=== PATIENT | female | born 1965 | race Caucasian/White ===

== ENCOUNTER → 2016-12-26 | Outpatient (CLI) | payer BC ==
--- NOTE | 2016-12-26 10:28 | US ---
EXAMINATION TYPE: US kidneys/renal and bladder DATE OF EXAM: 12/26/2016 COMPARISON: NONE CLINICAL HISTORY: N23 RENAL COLIC. EXAM MEASUREMENTS: Right Kidney: 10.4 x 4.2 x 5.0 cm Left Kidney: 10.7 x 5.4 x 4.4 cm Right Kidney: there appears to be a small amount of hydro and kidney stones Left Kidney: hyperechoic ovoid structure measuring 0.6 x 0.4 x 0.6cm Bladder: possible septation Bilateral Jets seen: yes There is a mild right-sided hydronephrosis. No evidence for left-sided hydronephrosis. Small hyperech oic foci right kidney with posterior acoustic shadowing felt to reflect small nephrolithiasis. 6 x 4 x 6 mm calculus mid pole left kidney. No solid or cystic mass is identified with certainty. The urina ry bladder is anechoic. Bladder septation is suspected. Bilateral ureteral jets are seen. IMPRESSION: 1. Mild right-sided hydronephrosis with nephrolithiasis identified. 2. Nonobstructing left-sided nephrolithiasis. 3. Urinary bladder septation.
== END | disposition home or self-care (01) ==
LOC: RADUSWWP 09:00
PROVIDERS: ATTEND Family Medicine
DX: N13.2 Hydronephrosis with renal and ureteral calculous obstruction (principal); N32.89 Other specified disorders of bladder
CPT/HCPCS: 76770

== ENCOUNTER → 2017-01-10 | Outpatient (CLI) | payer BC ==
--- NOTE | 2017-01-10 14:01 | US ---
EXAMINATION TYPE: US kidneys/renal and bladder DATE OF EXAM: 01/10/2017 COMPARISON: US CLINICAL HISTORY: N13.30 Hydronephrosis. Kidney stones, hydronephrosis EXAM MEASUREMENTS: Right Kidney: 11.4 x 5.1 x 5.0 cm Left Kidney: 11.0 x 5.3 x 4.3 cm Right Kidney: appears to be small amount of hydro with 0.4cm hyperechoic focus mid pole Left Kidney: appears to be small amount of hydro with 0.6cm hyperechoic structure mid pole Bladder: wnl Bilateral Jets seen: yes Echogenic foci within the kidneys could be none shadowing nonobstructing renal stones. IMPRESSION: Suspected bilateral renal stones without evidence of obstruction
== END | disposition home or self-care (01) ==
LOC: RADUSWWP 13:06
PROVIDERS: ATTEND Family Medicine
DX: N13.30 Unspecified hydronephrosis (principal)
CPT/HCPCS: 76770

== ENCOUNTER 2018-07-17 09:35 | Day surgery (SDC) | payer BC ==
[2018-07-11 14:58] VITALS: BMI 25.0
[~2018-07-17 09:35] MED LIST: HYDROmorphone 0.5 MG/0.5 ML SYRINGE IVP PRN; LACTATED RINGERS 1,000 ML IV SCH; MIDAZOLAM (PF) 2 MG/2 ML VIAL IV PRN; MOXIFLOXACIN HCL 0.5% DROPS 3 ML BTL OP ONE; TETRACAINE 0.5% OPHTH (PF) DROPS 4 ML BTL OP ONE; TIMOLOL 0.5% OPHTH DROPS 5 ML BTL OP ONE
[2018-07-17] MEDS: CYCLOPENTOLATE 1% OPHTH SOLN 2 ML BTL OP ONE ×3 (10:49→11:06)
[2018-07-17 10:51] VITALS: TEMP 99
[2018-07-17] MEDS: PHENYLEPHRINE 2.5% OPHTH DRP 2ML OP NR ×3 (10:53→11:09)
[2018-07-17] MEDS ORDERED: MIDAZOLAM 2 MG/2 ML VIAL ONE (11:44)
[2018-07-17] MEDS ORDERED: fentaNYL (PF) 50 MCG/ML 2 ML AMP ONE (11:44)
[2018-07-17] MEDS ORDERED: BALANCED SALT IRRIG SOLN COMB2 15 ML IRRIG.SOLN INTRAOCULA ONE (11:48)
[2018-07-17] MEDS ORDERED: LIDOCAINE 1% (PF) 10MG/ML VIAL MISCELLANE ONE (11:48)
[2018-07-17] MEDS ORDERED: HYALURONATE SODIUM INTRAOCULAR 1 EACH SYRINGE (12MG/ML) INTRAOCULA ONE (11:48)
--- NOTE | 2018-07-17 12:25 | P.OP ---
Date of Procedure: 07/17/18 Preoperative Diagnosis: NS & CS Postoperative Diagnosis: same Procedure(s) Performed: PIOL OS Implants: PCB00 21.0 Anesthesia: MAC Surgeon: Silas Gordon Estimated Blood Loss (ml): 0 Pathology: none sent Condition: stable Disposition: same day Indications for Procedure: blurry vision Operative Findings: No complications
[2018-07-17 12:47] VITALS: BP 138/68; PULSE 94; RESP 16
--- NOTE | 2018-07-17 20:56 | OP ---
OPERATIVE REPORT DATE OF SURGERY: July 17, 2018. PROCEDURE PERFORMED: Phacoemulsification of cataract and intraocular lens implant of the left eye. 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 POSTOPERATIVE DIAGNOSIS: Nuclear sclerosis and cortical sclerosis. SURGEON: Dr. Silas Gordon. ANESTHESIA: Topical. ESTIMATED BLOOD LOSS: None. SPECIMEN: None. NARRATIVE: After obtaining the appropriate consent, the patient was brought to the operating room there she was placed on cardiac monitoring prepped and draped in the usual sterile manner. She was approached from her left temporal side and at the 5 o'clock position a an MVR blade was used to create a paracentesis port. Through this opening, Amvisc was used to stabilize the anterior chamber. At the 3 o'clock position, a 2.5 mm keratome was used to create a self-sealing corneal flap incision in Langerman's fashion. A cystotome was introduced to begin a continuous tear capsulorrhexis which was then completed using the Utrata forceps. Hydrodissection and hydrodelineation of the lens was accomplished with balanced salt solution. Phacoemulsification lens utilizing phaco chop was accomplished in 33 100s of a second at 2% power. The remaining cortical material was then removed under irrigation and aspiration along with careful polishing of the posterior capsule in the capsule vacuum mode. Additional Amvisc was then used to stabilize the capsular bag and an BORIS PCP 0 0 21.0 diopter posterior chamber intraocular lens was introduced into the capsular bag without difficulty. The remaining viscoelastic was removed from in and around the intra-ocular lens as well as the anterior chamber. The eye was then brought to normal intraocular pressure through the paracentesis port and the incisions were confirmed watertight. She then received 2 drops of half percent timolol followed by 2 drops of moxifloxacin and was then lightly patched and shielded in the usual manner. There were no complications from the procedure. She tolerated the procedure well, was returned to outpatient recovery in good condition. MMODL / IJN: [id number] /
== END 2018-07-17 12:59 | disposition home or self-care (01) ==
LOC: OR 09:35
PROVIDERS: ATTEND Ophthalmology
DX: H25.013 Cortical age-related cataract, bilateral (principal); H25.12 Age-related nuclear cataract, left eye; J45.909 Unspecified asthma, uncomplicated; K21.9 Gastro-esophageal reflux disease without esophagitis; Z88.2 Allergy status to sulfonamides; Z88.0 Allergy status to penicillin; H49.12 Fourth [trochlear] nerve palsy, left eye; H52.4 Presbyopia; H52.13 Myopia, bilateral; Z88.8 Allergy status to other drugs, medicaments and biological substances; Z88.4 Allergy status to anesthetic agent
CPT/HCPCS: 66984; C1780; J2250; J3010; J2001

== ENCOUNTER 2024-07-30 06:38 | Day surgery (SDC) | payer BC ==
[2024-07-25 14:06] VITALS: BMI 25.0
[~2024-07-30 06:38] MED LIST changes: -HYDROmorphone 0.5 MG/0.5 ML SYRINGE IVP PRN; -LACTATED RINGERS 1,000 ML IV SCH; -MIDAZOLAM (PF) 2 MG/2 ML VIAL IV PRN; -MOXIFLOXACIN HCL 0.5% DROPS 3 ML BTL OP ONE; -TETRACAINE 0.5% OPHTH (PF) DROPS 4 ML BTL OP ONE; +TETRACAINE 0.5% OPHTH (PF) DROPS 4 ML BTL OP PRN; -TIMOLOL 0.5% OPHTH DROPS 5 ML BTL OP ONE
[2024-07-30] MEDS ORDERED: LACTATED RINGERS 1,000 ML IV SCH (07:06)
[2024-07-30] MEDS: IV FLUID CONTINUATION 1,000 ML IV ONE (07:12)
[2024-07-30] MEDS: CYCLOPENTOLATE 1% OPHTH SOLN 2 ML BTL OP PRN (07:19)
[2024-07-30] MEDS: PHENYLEPHRINE 2.5% OPHTH DRP 2ML OP PRN (07:22)
[2024-07-30 07:25] VITALS: TEMP 97.9
[2024-07-30] MEDS ORDERED: fentaNYL (PF) 50 MCG/ML 2 ML AMP ONE (08:13)
[2024-07-30] MEDS ORDERED: MIDAZOLAM 2 MG/2 ML VIAL ONE (08:13)
[2024-07-30] MEDS: EPINEPHrine (PF) 0.3 ML in BALANCED SALT IRRIG SOLN COMB2 500 ML IRRIGATION ONE (08:30)
[2024-07-30] MEDS: HYALURONATE SODIUM INTRAOCULAR 1 EACH SYRINGE (12MG/ML) INTRAOCULA ONE (08:41)
[2024-07-30] MEDS: LIDOCAINE 1% (PF) 10MG/ML VIAL SQ ONE (08:42)
[2024-07-30] MEDS: TIMOLOL 0.5% OPHTH DROPS 5 ML BTL OP PRN (08:42)
[2024-07-30] MEDS: BALANCED SALT IRRIG SOLN COMB2 15 ML IRRIG.SOLN INTRAOCULA ONE (08:42)
[2024-07-30] MEDS: MOXIFLOXACIN HCL 0.5% DROPS 3 ML BTL OP PRN (08:42)
--- NOTE | 2024-07-30 08:46 | P.OP ---
Date of Procedure: 07/30/24 Preoperative Diagnosis: NS & CS Postoperative Diagnosis: same Procedure(s) Performed: PIOL< OD Implants: [id number] 21.00 Anesthesia: MAC Surgeon: Silas Gordon Pathology: none sent Condition: stable Disposition: same day Indications for Procedure: blurry vision Operative Findings: no complications
[2024-07-30 09:06] VITALS: BP 126/82; PULSE 86; RESP 16
--- NOTE | 2024-07-30 22:13 | OP ---
OPERATIVE REPORT DATE OF SERVICE : 07/30/2024 PREOPERATIVE DIAGNOSIS: Nuclear sclerosis. POSTOPERATIVE DIAGNOSIS: Nuclear sclerosis. OPERATION: Phacoemulsification of cataract and interocular lens implant, right eye. ESTIMATED BLOOD LOSS: Zero. SPECIMEN TAKEN: None. NARRATIVE: After obtaining the appropriate consent, the patient was brought to the operating room where the patient was placed under cardiac monitoring and prepped and draped in the usual sterile manner. At the 11 o'clock position, a 15-degree super sharp blade was used to create a paracentesis. This was followed by Amvisc viscoelastic to stabilize the anterior chamber. At the 9 o'clock position a self-sealing corneal flap incision was created using 2.8 mm sal keratome. A cystotome was used to initiate a continuous tear capsulorrhexis which was completed with the Utrata forceps. A Binkhorst cannula was used to hydrodissect the lens nucleus followed by hydrodelineation. Phacoemulsification of the lens was performed utilizing phacochop in 5.22 seconds at 9.3% power. The remaining cortical material was removed using the irrigation aspiration mode followed by viscoelastic to stabilize the capsular bag. A Phillip and Phillip DCB00 21.0 diopters posterior chamber lens was placed into the capsular bag without difficulty. The remaining viscoelastic material was removed from the anterior chamber with the irrigation/aspiration. The incision was checked for watertight integrity. The patient then received 2 drops of 0.5% timolol followed by 2 drops Vigamox, was lightly patched and shielded in the usual manner. There were no complications from the procedure. The patient tolerated the procedure well and was returned to recovery in good condition. MMODL / IJN: [id number] /
== END 2024-07-30 09:34 | disposition home or self-care (01) ==
LOC: OR 06:38
PROVIDERS: ATTEND Ophthalmology
DX: H25.811 Combined forms of age-related cataract, right eye (principal); H49.12 Fourth [trochlear] nerve palsy, left eye; H40.003 Preglaucoma, unspecified, bilateral; H04.129 Dry eye syndrome of unspecified lacrimal gland; H52.4 Presbyopia; H52.13 Myopia, bilateral; G25.3 Myoclonus; J45.909 Unspecified asthma, uncomplicated; F41.9 Anxiety disorder, unspecified; H93.19 Tinnitus, unspecified ear; K21.9 Gastro-esophageal reflux disease without esophagitis; Z98.42 Cataract extraction status, left eye; Z96.1 Presence of intraocular lens; Z90.710 Acquired absence of both cervix and uterus; Z86.74 Personal history of sudden cardiac arrest; Z88.8 Allergy status to other drugs, medicaments and biological substances; Z98.890 Other specified postprocedural states; Z88.4 Allergy status to anesthetic agent; Z88.0 Allergy status to penicillin; Z88.2 Allergy status to sulfonamides
CPT/HCPCS: 66984; V2632; J2250; J0171; J3010; J2003